=== PATIENT | male | born 1960 | race Caucasian/White ===

== ENCOUNTER 2017-06-02 13:14 | Inpatient (IN) ==
[2017-06-02] MEDS ORDERED: SODIUM CHLORIDE 0.9% 500 ML IV STA ×2 (14:05→15:45)
[2017-06-02] MEDS ORDERED: PANTOPRAZOLE 40 MG VIAL IV STA (14:05)
[2017-06-02] MEDS ORDERED: ONDANSETRON 4 MG/2 ML VIAL IV STA (14:05)
[2017-06-02 14:22] LABS: Basophils # 0.1 10*3/uL (0.0-0.2); Basophils % 1.4 % (0.0-0.8); Eosinophils # 0.6 10*3/uL (0.0-0.87); Eosinophils % 7.1 % (0.00-10.9); Hematocrit 46.2 VOL% (42.0-52.0); Hemoglobin 16.2 GM/DL (14.0-18.0); Immature Granulocytes % 0.8 %; Immature Granulocytes Absolute 0.07 #; Lymphocytes # 2.1 10*3/uL (1.4-4.0); Lymphocytes % 23.6 % (21.2-54.2); Mean Corpuscular HGB Conc 35.1 GM/DL (32-36); Mean Corpuscular Hemoglobin 30 PG (27-34); Mean Corpuscular Volume 86.2 FL (87-102); Mean Platelet Volume 12.9 FL (9.6-12.0); Monocytes # 0.7 10*3/uL (0.11-0.8); Monocytes % 7.8 % (1.7-12.7); Neutrophils # 5.3 10*3/uL (1.4-7.4); Neutrophils % 59.3 % (38.7-73.9); Platelet Count 190 T/CUMM (130-400); Red Blood Count 5.36 MC/CUMM (3.8-5.5); Red Cell Distribution Width 12.6 % (9.3-17.3)
[2017-06-02] MEDS ORDERED: ONDANSETRON 4 MG/2 ML VIAL ONE (14:28)
[2017-06-02] MEDS ORDERED: PANTOPRAZOLE 40 MG VIAL IV ONE (14:28)
[2017-06-02 14:34] LABS: INR 1.1; PT Patient Result 11.4 SECS
--- NOTE | 2017-06-02 14:48 | CT Report ---
CT of the abdomen and pelvis with intravenous contrast only. 100 cc Omni 350. Indication: Rectal bleeding. Generalized abdominal pain. 100 cc Omni 350. Axial images were obtained with sagittal and coronal reconstructions. Comparison: Previous noncontrasted study of July 04, 2010. The heart is normal in size. There is no pericardial effusion. The lung bases are essentially clear. There is mild fatty infiltration of the liver. No focal liver lesions are identified. There is no splenic enlargement. There is no adrenal enlargement. No pancreatic lesions are identified. There is a 4 mm calculus at the lower pole of the left kidney. No cystic or solid masses are seen within the kidneys. There are prominent extrarenal pelvi bilaterally, worse on the right. The urinary bladder is distended. The prostate gland is upper limits of normal in size. There is no inguinal or iliac chain lymphadenopathy. There is no retroperitoneal or mesenteric lymphadenopathy. Along the SMA, there is slight stranding in the fat, and small subcentimeter lymph nodes are present. A small hiatal hernia is suggested. The proximal and distal loops of small intestine are not dilated. Some of the middle loops of small intestine are mildly dilated, particularly in the left abdomen, with out fold thickening, or wall thickening, or surrounding inflammation. There is an umbilical hernia which contains only fat. The terminal ileum and appendix present a normal appearance. The colon is not dilated. There is no free air or free fluid seen within the peritoneal cavity. Degenerative changes are noted within the spinal column. Impression: 1. Fatty liver. 2. Nonspecific dilatation without wall thickening involving a few loops of small intestine in the left abdomen. 3. Small hiatal hernia. 4. Very slight fat stranding along the SMA root, with tiny subcentimeter lymph nodes. 5. Umbilical hernia containing fat. Hiatal hernia. 6. Bilateral extrarenal pelvi. Nonobstructing left renal calculus. The CT exam was performed using one or more of the following dose reduction techniques: Automated exposure control, adjustment of the mA and/or kV according to patient size, or use of iterative reconstruction technique. PROCEDURE INTERPRETED AT [facility] DEPARTMENT OF RADIOLOGY Final Report Signed by: Dr. Delma Ceballos
[2017-06-02 14:57] LABS: Albumin 4.3 G/DL (3.4-5.0); Calcium 9.3 MG/DL (8.5-10.1); Osmolality,Calculated 282.7 MOS/KG (273-304); Potassium 4.5 MMOL/L (3.5-5.1); Total Protein 7.6 G/DL (6.4-8.3)
--- NOTE | 2017-06-02 15:13 | XRay Report ---
Exam: XR chest 1V portable Date: 06/02/2017 2:05 PM Indication: Shortness of breath Comparison: None Technical: AP Findings: Mild cardiomegaly. External cardiac leads are present. Mediastinum is intact. No obvious effusions. The bony structures reveal lateral marginal osteophytes and arthritic change of the shoulders. No obvious consolidations or pneumothorax. Impression: 1. Cardiomegaly without decompensation 2. Degenerative spondylosis change thoracic spine. PROCEDURE INTERPRETED AT [facility] DEPARTMENT OF RADIOLOGY Final Report Signed by: Dr. John Loya
[2017-06-02] MEDS ORDERED: INSULIN REGULAR 100 UNIT/ML SUBCUT STA (15:33)
[2017-06-02] MEDS ORDERED: ACETAMINOPHEN 325 MG TABLET PO PRN (15:35)
[2017-06-02] MEDS ORDERED: ONDANSETRON 4 MG/2 ML VIAL IV PRN (15:35)
--- NOTE | 2017-06-02 15:41 | Emergency Department Note ---
Krystle Briones Rolonda, am scribing for, and in the presence of, Ashish Whitley MD 14:14. Angi Briones Phillip K, MD, personally performed the services described in this documentation, ascribed by Jaison Dalton in my presence, and it is both accurate and complete [id number] . Arrival - Arrival Chief Complaint: GI Bleed/Rectal Stated Complaint: GI bleed ED Nursing Triage Note: pt c/o "tomato paste" blood in stool onset yesterday Mode of Arrival: Ambulatory Limitations: No Limitations Source: Patient, Old Records Reviewed, RN Notes Reviewed Time Seen by Provider: 06/02/17 14:04 - History of Present Illness HPI Narrative: Pt is a 56 y/o male who ambulated to the ED wit complaint of lower abdominal pain with an onset of x1 day ago. Pt states that he noticed blood in his stool yesterday morning, blood in urine last night and this morning as well. Nurses' note states that pt stated he had "tomato paste" blood in his stool. He states that he is also currently on medication for constipation. Pt confirms nausea, light headedness, and lower abdomen pain but denies vomiting, fever and SHx of smoking and EtOh usage. Onset (ago): day(s) Consistency: constant Severity: moderate Severity scale (1-10): 4 Allergies/Adverse Reactions: Allergies Allergy/AdvReac Type Severity Reaction Status Date / Time No Known Allergies Allergy Verified 05/28/16 10:30 Home Medications: Home Medications Medication Instructions Recorded Confirmed Type Amlodipine Besylate/Benazepril 1 each PO DAILY 06/17/16 06/02/17 History [Amlodipine-Benazepril 5-20 mg] Aspirin/Caffeine [Bc Arthritis 1 each PO DAILY PRN 06/02/17 06/02/17 History Powder Packet] Sennosides [Natural Laxative] 8.6 mg PO DAILY PRN 06/02/17 06/02/17 History Tramadol HCl [Tramadol Tab] 50 mg PO Q8H PRN 06/02/17 06/02/17 History clonazePAM TAB [KlonoPIN] 0.5 mg PO TID 06/02/17 06/02/17 History Review of System - Review of System 12 point system: reviewed and no additional remarkable complaints except as stated - Review of System Constitutional: Absent: chills, diaphoresis, fever Eyes: Absent: pain Head/Ears/Nose/Throat: Absent: earache Respiratory: Absent: cough, respiratory distress, wheezing Cardiovascular: Absent: chest pain, palpitations, dyspnea on exertion Gastrointestinal: Present: abdominal pain, nausea, constipation. Absent: vomiting Musculoskeletal: Absent: arm pain, back pain, lower back pain, leg pain, neck pain Skin: Absent: rash Neurological: Present: vertigo. Absent: headache Psychiatric: Absent: anxiety Medical,Surgical,& Family Hx - Medical History Cardio: History of: Hypertension Respiratory: History of: Respiratory Problems (C-Pap) Musculoskeletal: History of: Back/Neck Problems (Back injury 05/23/16) - Social History Smoking Status: Never smoker Frequency of Alcohol Use: None Type of Drug Use: None Exam Vital Signs: Vital Signs Temperature 98.2 F 06/02/17 13:23 Pulse Rate 75 06/02/17 13:23 Respiratory Rate 18 06/02/17 13:23 Blood Pressure 118/78 06/02/17 13:23 O2 Sat by Pulse Oximetry 98 06/02/17 14:24 - General General appearance: alert, in no apparent distress - Head Head exam: Present: atraumatic, normocephalic - Eye Eye exam: Present: PERRL, EOMI - ENT ENT exam: Present: mucous membranes moist. Absent: mucous membranes dry - Neck Neck exam: Present: full ROM. Absent: tenderness - Chest Chest inspection: Present: symmetric chest wall rise. Absent: tenderness - Respiratory Respiratory exam: Present: normal lung sounds bilaterally. Absent: wheezes - Cardiovascular Cardiovascular exam: Present: regular rate, normal rhythm, normal heart sounds. Absent: bradycardia - Abdominal Exam Abdominal exam: Present: soft, tenderness (suprapubic) - Rectal Exam Rectal exam: Present: bloody stool (gross blood and mucous). Absent: normal inspection - Extremities Exam Extremities exam: Present: full ROM. Absent: tenderness - Back Exam Back exam: Present: full ROM. Absent: tenderness - Neurological Exam Neurological exam: Present: alert, oriented X3, CN II-XII intact - Psychiatric Psychiatric exam: Present: normal affect, normal mood - Skin Skin exam: Present: warm, dry, intact, normal color. Absent: rash Course Course Narrative: Patient discussed with Dr. Herbert. Results - Labs CBC & BMP: 06/02/17 14:12 06/02/17 14:12 Lab Results: I have reviewed the patients labs Labs: Laboratory Tests 06/02/17 14:18 POC Creatinine 0.94 POC Estimated GFR (eGFR) > 60 Laboratory Tests 06/02/17 06/02/17 14:12 14:12 WBC 9.0 RBC 5.36 Hgb 16.2 Hct 46.2 MCV 86.2 L Plt Count 190 MPV 12.9 H Baso % (Auto) 1.4 H INR 1.1 PT Patient/Control Mix 11.4 Laboratory Tests 06/02/17 14:12 Sodium 131 L Potassium 4.5 Chloride 97 L Carbon Dioxide 21 Anion Gap 17.5 H BUN 13 GFR Calculation 111 Glucose 484 H AST 85 H ALT 129 H - Diagnostic Findings Procedure: CT Abdomen and Pelvis: report reviewed by me (1. Fatty liver. 2. Nonspecific dilatation without wall thickening involving a few loops of small intestine in the left abdomen. 3. Small hiatal hernia.) Disposition Clinical Impression: Lower gastrointestinal hemorrhage, Poorly controlled diabetes mellitus Case discussed with: patient, patient's family Disposition: Still a Patient Condition: Guarded Additional Instructions: Admit to Dr. Herbert
[2017-06-02] MEDS ORDERED: SODIUM CHLORIDE 0.9% 1,000 ML IV STA (15:43)
[2017-06-02] MEDS ORDERED: GLUCAGON 1 MG VIAL IM PRN (16:52)
[2017-06-02] MEDS ORDERED: DEXTROSE 50% 25 GM/50 ML VIAL IV PRN (16:52)
[2017-06-02] MEDS: SODIUM CHLORIDE 0.9% 1,000 ML IV SCH (17:00)
--- NOTE | 2017-06-02 18:38 | Family Practice History&Phys ---
Assessment and Plan (1) Lower gastrointestinal hemorrhage Status: Acute Assessment and plan: Lower abdominal bleeding unknown etiology. Has some wall thickening small bowel on abdominal CT. Symptoms began after taking cathartics. No previous history of GI bleeding Current Visit: Yes (2) new-onset type 2 diabetes Status: Acute Current Visit: Yes (3) Weight loss and weakness Status: Acute Assessment and plan: Probably secondary to new onset type 2 diabetes mellitus Current Visit: Yes (4) history of renal calculi Status: Chronic Assessment and plan: Previous history of renal calculi. Has a stone in the left renal pelvis Current Visit: Yes (5) fatty liver disease Status: Acute Assessment and plan: Fatty infiltration of the liver on the abdominal CT. Has slight elevation of liver enzymes Current Visit: Yes (6) hypertension Status: Chronic Assessment and plan: Stable on present medication Current Visit: Yes (7) obstructive sleep apnea Status: Chronic Assessment and plan: Stable at present Current Visit: Yes History of Present Illness Chief complaint: Rectal bleeding and weight loss History of present illness: Mr. Allen is a 56 year old male Pt is a 56 y/o male who was admitted through the emergency room with complaint of lower abdominal pain with an onset of x1 day. Pt states that he noticed blood in his stool yesterday morning. The blood develop after taking multiple laxatives for constipation. He denies previous similar history. Nurses' states that pt stated he had "tomato paste" blood in his stool. He states that he is currently on medication for constipation. Pt confirms nausea, light headedness, and lower abdomen pain but denies vomiting,or fever. Patient is presently being treated at pain clinic for low back pain. He is presently receiving Ultram but no other form of narcotics. patient's lab studies in the emergency room revealed no signs of anemia. He was noted to have a elevated blood sugar at 484. No previous history of diabetes. He has had over 20 pound weight loss in the last 4-6 weeks. He is also had nocturia getting up 3-4 times a night. He is further had severe weakness over the last 4-6 weeks with significant visual changes. All the symptoms are compatible with diabetes. No recent steroid injections. He has not had any lab done in several years. I have primarily seen him in relation to his his back injury. Was also noted to have a slight elevation of liver enzymes. Abdominal CT revealed fatty liver disease with some wall thickening of the small bowel in the left lower abdomen. No history of alcohol usage. he was also noted to have a left renal calculi nonobstructing. The Stone is in the renal pelvis. Has history of previous renal calculi. Last colonoscope done 15-20 years ago. in view of overall history is being admitted further evaluation and therapy. Home Medications Medication Instructions Recorded Confirmed Type Amlodipine Besylate/Benazepril 1 each PO DAILY 06/17/16 06/02/17 History [Amlodipine-Benazepril 5-20 mg] Aspirin/Caffeine [Bc Arthritis 1 each PO DAILY PRN 06/02/17 06/02/17 History Powder Packet] Sennosides [Natural Laxative] 8.6 mg PO DAILY PRN 06/02/17 06/02/17 History Tramadol HCl [Tramadol Tab] 50 mg PO Q8H PRN 06/02/17 06/02/17 History clonazePAM TAB [KlonoPIN] 0.5 mg PO TID 06/02/17 06/02/17 History Allergies Allergy/AdvReac Type Severity Reaction Status Date / Time No Known Allergies Allergy Verified 05/28/16 10:30 Medical,Surgical,& Family Hx - Medical History Cardio: History of: Hypertension Respiratory: History of: Respiratory Problems (C-Pap for obstructive sleep apnea ) Genitourinary: History of: Kidney Stones Gastrointestinal: History of: GERD Musculoskeletal: History of: Back/Neck Problems (Back injury 05/23/16), Degenerative Disk Disease, Herniated Disk - Surgical History Orthopedic Surgeries: Surgical HX of;: Spinal Surgery (history of lumbar disc surgery) - Family History Family History: Reports;: Family Hypertension - Social History Smoking Status: Never smoker Frequency of Alcohol Use: None Type of Drug Use: None Marital Status: Lives With:: Spouse Functional capacity: independent ambulation Exam - Constitutional Vitals: Period Temp Pulse Resp BP Sys/June Pulse Ox Last 24 Hr 97.4 F-98.2 F 56-77 18-20 111-124/60-86 96-98 General appearance: mild distress - Head Head exam: Present: normal inspection - Eye Pupils: Present: GLORY - ENT ENT exam: Present: normal exam - Neck Neck exam: Present: normal inspection - Respiratory Respiratory exam: Present: clear to auscultation bilaterally - Cardiovascular Cardiovascular exam: Present: regular rate and rhythm - GI/Abdominal GI/Abdominal exam: Present: normal bowel sounds, tenderness, soft - Extremities Exam Extremities exam: Present: full ROM - Back Exam Back exam: Present: other (diffuse tenderness over the lower lumbar region spine ) - Neurological Exam Neurological exam: Present: alert, oriented X3 - Psychiatric Psychiatric exam: Present: normal affect - Skin Skin exam: Present: normal color Results - Labs CBC & BMP: 06/03/17 06:01 06/03/17 06:01 Quality Measures - Stroke Symptom Onset Unknown: No
[2017-06-02] MEDS ORDERED: SENNA 8.6 MG TABLET PO PRN (19:19)
[2017-06-02] MEDS ORDERED: traMADol 50 MG TABLET PO PRN (19:19)
[2017-06-02] MEDS: DOCUSATE SODIUM 100 MG CAPSULE PO SCH (21:03)
[2017-06-02] MEDS: INSULIN LISPRO 100 UNIT/ML SUBCUT SCH (21:03)
[2017-06-02] MEDS: clonazePAM 0.5 MG TABLET PO SCH (21:03)
[2017-06-02 22:49] LABS: Hematocrit 40.4 VOL% (42.0-52.0); Hemoglobin 14.2 GM/DL (14.0-18.0)
[2017-06-03] MEDS: SODIUM CHLORIDE 0.9% 1,000 ML IV SCH ×3 (00:57→19:00)
--- NOTE | 2017-06-03 06:01 | EKG Report ---
Stationary ECG Study [facility] ER Test Date: 06/02/2017 3:19:23 PM Pat Name: HOLLY NAVARRO Department: Room: 237 Gender: M Director Risk: : 1960 Requested by: Ashish Tompkins Order Number: [id number] Reading MD: UCHE MCCULLOUGH Intervals [place] Rate: 54 P: 999 NH: 0 QRS: 19 QRSD: 113 T: 54 QT: 438 QTc: 424 Interpretive Statements ATRIAL FIBRILLATION WITH SLOW VENTRICULAR RESPONSE MODERATE INTRAVENTRICULAR CONDUCTION DELAY NONSPECIFIC T-WAVE ABNORMALITY ABNORMAL RHYTHM ECG Electronically Signed On 06-03-17 09:26:50 CDT by UCHE MCCULLOUGH [email or web address]
[2017-06-03 06:34] LABS: Basophils # 0.1 10*3/uL (0.0-0.2); Basophils % 1.4 % (0.0-0.8); Eosinophils # 0.8 10*3/uL (0.0-0.87); Eosinophils % 11.3 % (0.00-10.9); Hematocrit 40.2 VOL% (42.0-52.0); Hemoglobin 13.8 GM/DL (14.0-18.0); Immature Granulocytes % 0.9 %; Immature Granulocytes Absolute 0.06 #; Lymphocytes % 30.5 % (21.2-54.2); Mean Corpuscular HGB Conc 34.3 GM/DL (32-36); Mean Corpuscular Hemoglobin 30 PG (27-34); Mean Platelet Volume 13.1 FL (9.6-12.0); Monocytes # 0.7 10*3/uL (0.11-0.8); Monocytes % 10.3 % (1.7-12.7); Neutrophils % 45.6 % (38.7-73.9); Platelet Count 143 T/CUMM (130-400); Red Blood Count 4.62 MC/CUMM (3.8-5.5); Red Cell Distribution Width 12.7 % (9.3-17.3); White Blood Count 6.6 T/CUMM (4-12)
[2017-06-03 07:16] LABS: Eosinophils 11 % (0-10); Hypochromasia 1+; Lymphocytes 33 % (20-55); Segmented Neutrophils 45 % (50-85); Total Cells Counted 100
[2017-06-03 07:17] LABS: Platelet Estimate Adequate
[2017-06-03 07:21] LABS: Albumin 3.3 G/DL (3.4-5.0); Bilirubin,Total 1.2 MG/DL (0.2-1.0); Calcium 8.3 MG/DL (8.5-10.1); Magnesium 1.9 MG/DL (1.8-2.4); Osmolality,Calculated 284.5 MOS/KG (273-304); Potassium 3.7 MMOL/L (3.5-5.1); Risk Ratio 7.78; Total Protein 5.9 G/DL (6.4-8.3); VLDL CHOLESTEROL 48.6 MG/DL
[2017-06-03 07:42] LABS: Apearance,Urine CLEAR (Clear); Bilirubin,Urine Negative (Negative); Blood, Urine Negative (Negative); Glucose,Urine (UA) >=500 mg/dL (Negative); Ketones,Urine 20 mg/dL (Negative); Mucus,Urine Occasional /LPF (Occasional); Nitrite,Urine Negative (Negative); Protein,Urine Negative; RBC,Urine <1 /HPF (0-4); Urine Color Yellow (Yellow); Urine Specific Gravity 1.026 (1.001-1.035); Urine Urobilinogen < 2.0 EU/DL (0.2-1.0); WBC,Urine 2 /HPF (0-6)
[2017-06-03 07:53] LABS: Hepatitis A Ab IgM Quant 0.06 Index; Hepatitis A Ab IgM Result Negative (Negative); Hepatitis B Core IgM Quant 0.14 Index; Hepatitis B Core IgM Result Negative (Negative); Hepatitis B Surface Ag Quant < 0.10 Index; Hepatitis B Surface Ag Result Negative (Negative); Hepatitis C Virus Ab Result Negative (Negative)
--- NOTE | 2017-06-03 08:30 | Family Practice Progress Note ---
Family Practice - PN: Subj Interval history: Patient states she feels some better. He has had no further rectal bleeding that is being is only occurred with bowel movements. His blood sugars have improved but are still elevated. Hemoglobin A1c is 11.7. Patient does not want to take insulin so we will trial an oral meds but likely will have to go to insulin therapy. Also has fatty liver disease with elevated lipids and liver enzymes. I started patient on Lipitor this a.m.. Have consulted GI and will have staff hold him n.p.o. until seen by GI this a.m. I will suspect the bleeding is probably from a tear or polyp since it only occurs with bowel movements. He has not had a colonoscope in over 15 years. Will also consult diabetic education since patient has a new diabetic. Spent significant time with patient and and they have an understanding of multiple issues. Exam (Progress Note) - Constitutional Vitals: Period Temp Pulse Resp BP Sys/June Pulse Ox Last 24 Hr 97.3 F-98.2 F 51-77 18-20 110-133/60-86 96-98 Results - Labs CBC & BMP: 06/03/17 06:01 06/03/17 06:01 Assessment and Plan (1) Lower gastrointestinal hemorrhage Status: Acute Assessment and plan: Lower abdominal bleeding unknown etiology. Has some wall thickening small bowel on abdominal CT. Symptoms began after taking cathartics. No previous history of GI bleeding Current Visit: Yes (2) new-onset type 2 diabetes Status: Acute Current Visit: Yes (3) Weight loss and weakness Status: Acute Assessment and plan: Probably secondary to new onset type 2 diabetes mellitus Current Visit: Yes (4) history of renal calculi Status: Chronic Assessment and plan: Previous history of renal calculi. Has a stone in the left renal pelvis Current Visit: Yes (5) fatty liver disease Status: Acute Assessment and plan: Fatty infiltration of the liver on the abdominal CT. Has slight elevation of liver enzymes Current Visit: Yes (6) hypertension Status: Chronic Assessment and plan: Stable on present medication Current Visit: Yes (7) obstructive sleep apnea Status: Chronic Assessment and plan: Stable at present Current Visit: Yes Quality Measures - Stroke Symptom Onset Unknown: No
[2017-06-03] MEDS: INSULIN LISPRO 100 UNIT/ML SUBCUT SCH ×3 (08:38→16:31)
[2017-06-03] MEDS: PANTOPRAZOLE 40 MG TABLET PO SCH (08:41)
[2017-06-03] MEDS: clonazePAM 0.5 MG TABLET PO SCH ×3 (08:41→22:17)
--- NOTE | 2017-06-03 11:28 | Gastrointestinal Consult Note ---
Assessment and Plan (1) Rectal bleed Status: Acute Assessment and plan: 06/03-sudden onset bright red rectal bleeding with bowel movement 2 days with lower abdominal pain/cramping. Last C scope 15-20 years ago at [facility]. Slight drop in H&H since admission. CT of abdomen results noted as below. Continue clear liquid diet. Obtain records from [facility] from prior endoscopy. Continue to monitor H&H. Plan an addendum to followed by Dr. Alexis. Current Visit: Yes (2) Elevated LFTs Status: Acute Assessment and plan: 06/03-findings of mildly elevated LFTs on admission with findings of fatty liver on CT scan, elevated triglycerides and cholesterol. Negative hepatitis panel. Negative history of alcohol use. Continue to monitor at this time. Plan an addendum to follow Dr. Alexis. Current Visit: Yes History of Present Illness Chief complaint: Rectal bleeding History of present illness: Mr. Allen is a 56 year old male who was admitted to the hospital with onset of rectal bleeding. Patient states that he was in his usual state of health until Thursday. He states that he has had problems with constipation over the last year since having a back injury requiring back surgery and daily use of narcotic pain medicine. He had been constipated off and on for several days last week and states that he took several laxatives. Thursday morning he had the urge to have a bowel movement and at that time he states he had a very large stool that was also followed by a large amount of bright red blood. He does recall having some lower abdominal pain that he feels was not just the urge to defecate. However the pain was resolved with the bowel movement. Later that day he had another large bowel movement which was also followed by large amount of bright red blood. He denies any clots noted with this. He also had the same lower abdominal pain. He then woke up Thursday morning and had a repeat episode of bleeding. At that time he felt he needed to come to the emergency room for further evaluation. Patient states that he has lost 20 pounds over the last 6 weeks along with this he is also noted an increase in his water intake as well as his urination. He is also reported some weakness and some visual changes. He has no prior history of diabetes however on admission was found to have an elevated blood sugar 484. He states that he has had GI bleeding in the past approximately 15-20 years ago and underwent a colonoscopy by Dr. Moncada at [facility]. He cannot recall the findings at that time but was told to return in 10 years. He has no family history of colon cancer. He denies any upper GI symptoms including dysphagia, GERD, dyspepsia or epigastric pain. He does take an occasional BC powder every 2-3 weeks for arthritis pain. He does not smoke and has no prior history of alcohol use. On admission he was found to have elevated LFTs with bilirubin 1.2, AST 62, ALT 101 and a normal alkaline phosphatase. He has an elevation in his triglycerides at 243 and cholesterol at 210. Negative hepatitis panel noted. On admission H&H was 16/ 46 and is trended downward to 13/40. He has no prior history of blood transfusions or chronic disease and states he has not been hospitalized or had routine medical care over the last [address] of abdomen with contrast shows fatty liver, nonspecific dilation without wall thickening of a few loops of the small intestines in the left abdomen, hiatal hernia, fat stranding of SMA root with subcentimeter lymph nodes, and umbilical hernia containing fat. Home Medications Medication Instructions Recorded Confirmed Type Amlodipine Besylate/Benazepril 1 each PO DAILY 06/17/16 06/02/17 History [Amlodipine-Benazepril 5-20 mg] Aspirin/Caffeine [Bc Arthritis 1 each PO DAILY PRN 06/02/17 06/02/17 History Powder Packet] Sennosides [Natural Laxative] 8.6 mg PO DAILY PRN 06/02/17 06/02/17 History Tramadol HCl [Tramadol Tab] 50 mg PO Q8H PRN 06/02/17 06/02/17 History clonazePAM TAB [KlonoPIN] 0.5 mg PO TID 06/02/17 06/02/17 History Allergies Allergy/AdvReac Type Severity Reaction Status Date / Time No Known Allergies Allergy Verified 05/28/16 10:30 Medical,Surgical,& Family Hx - Medical History Cardio: History of: Hypertension Respiratory: History of: Respiratory Problems (C-Pap for obstructive sleep apnea ) Genitourinary: History of: Kidney Stones Gastrointestinal: History of: GERD Musculoskeletal: History of: Back/Neck Problems (Back injury 05/23/16), Degenerative Disk Disease, Herniated Disk - Surgical History Orthopedic Surgeries: Surgical HX of;: Spinal Surgery (history of lumbar disc surgery) - Family History Family History: Reports;: Family Hypertension - Social History Smoking Status: Never smoker Frequency of Alcohol Use: None Type of Drug Use: None 12 point system: reviewed and no additional remarkable complaints except as stated - Constitutional Constitutional: Present: as per HPI, fatigue, weakness, weight loss (20 pounds 6 weeks) - EENT Eyes: Present: as per HPI Ears: Present: as per HPI Nose, mouth and throat: Present: as per HPI - Cardiovascular Cardiovascular: Present: as per HPI - Respiratory Respiratory: Present: as per HPI - Gastrointestinal Gastrointestinal: Present: as per HPI, abdominal pain (Lower quadrant), hematochezia - Genitourinary Genitourinary: Present: as per HPI, urinary frequency - Musculoskeletal Musculoskeletal: Present: as per HPI - Neurological Neurological: Present: as per HPI - Psychiatric Psychiatric: Present: as per HPI - Endocrine Endocrine: Present: as per HPI, polydipsia, polyuria - Hematologic/Lymphatic Hematologic/Lymphatic: Present: as per HPI Exam - Constitutional Vitals: Period Temp Pulse Resp BP Sys/June Pulse Ox Last 24 Hr 97.3 F-98.2 F 51-77 18-20 110-133/60-86 96-98 General appearance: normal weight, no acute distress - Head Head exam: Present: normal inspection, normocephalic - Eye Eye exam: Present: other (Lids and conjunctive are unremarkable). Absent: scleral icterus - ENT ENT exam: Present: normal exam, normal oropharynx - Neck Neck exam: Present: normal inspection - Respiratory Respiratory exam: Present: clear to auscultation bilaterally. Absent: rales, rhonchi, wheezes - Cardiovascular Cardiovascular exam: Present: regular rate and rhythm. Absent: diastolic murmur , JVD, systolic murmur - GI/Abdominal GI/Abdominal exam: Present: normal bowel sounds, soft. Absent: ascites, distended, mass, organomegaly, tenderness - Extremities Exam Extremities exam: Present: normal inspection, full ROM - Back Exam Back exam: Present: normal inspection - Neurological Exam Neurological exam: Present: alert, oriented X3 - Psychiatric Psychiatric exam: Present: normal affect, normal mood - Skin Skin exam: Present: normal color, warm, dry Results - Labs CBC & BMP: 06/03/17 06:06/03/17 06:01 Lab Results: I have reviewed the past 24 hour labs Quality Measures - Stroke Symptom Onset Unknown: No
[2017-06-03] MEDS ORDERED: BISACODYL 5 MG TABLET PO ONE (12:00)
[2017-06-03] MEDS: ATORVASTATIN 20 MG TABLET PO SCH (12:55)
[2017-06-03] MEDS: DOCUSATE SODIUM 100 MG CAPSULE PO SCH ×2 (12:56→22:17)
[2017-06-03] MEDS ORDERED: POLYETHYLENE GLYCOL 3350/ELECTROLYTES 4,000 ML BOTTLE PO ONE (13:00)
[2017-06-03] MEDS: metFORMIN 500 MG TABLET PO SCH (16:40)
[2017-06-03] MEDS: glyBURIDE 5 MG TABLET PO SCH (16:42)
[2017-06-03 21:19] LABS: % Iron Saturation 37.2 % (18-50); Ferritin 343.2 ng/ml (26-388)
[2017-06-04] MEDS: INSULIN LISPRO 100 UNIT/ML SUBCUT SCH ×5 (01:31→21:26)
[2017-06-04] MEDS ORDERED: MAGNESIUM CITRATE 300 ML BOTTLE PO ONE (06:00)
[2017-06-04 07:06] LABS: Basophils # 0.1 10*3/uL (0.0-0.2); Basophils % 1.4 % (0.0-0.8); Eosinophils # 0.6 10*3/uL (0.0-0.87); Eosinophils % 8.9 % (0.00-10.9); Hematocrit 43.8 VOL% (42.0-52.0); Hemoglobin 14.8 GM/DL (14.0-18.0); Immature Granulocytes % 0.9 %; Immature Granulocytes Absolute 0.06 #; Mean Corpuscular HGB Conc 33.8 GM/DL (32-36); Mean Corpuscular Hemoglobin 30 PG (27-34); Mean Corpuscular Volume 88.7 FL (87-102); Mean Platelet Volume 12.7 FL (9.6-12.0); Monocytes # 0.7 10*3/uL (0.11-0.8); Monocytes % 9.5 % (1.7-12.7); Neutrophils # 3.5 10*3/uL (1.4-7.4); Neutrophils % 50.3 % (38.7-73.9); Platelet Count 158 T/CUMM (130-400); Red Blood Count 4.94 MC/CUMM (3.8-5.5); Red Cell Distribution Width 12.9 % (9.3-17.3)
[2017-06-04 07:37] LABS: Calcium 8.3 MG/DL (8.5-10.1); Osmolality,Calculated 280.5 MOS/KG (273-304); Potassium 3.5 MMOL/L (3.5-5.1)
--- NOTE | 2017-06-04 08:00 | Family Practice Progress Note ---
Family Practice - PN: Subj Interval history: Patient states that he continues to slowly improve. He has had no further hematochezia or melena. His hemoglobin and hematocrits remained stable. Patient is scheduled to have a colonoscope this a.m. Blood sugars are slowly improving. Reviewed all studies in detail. Will review colonoscope today. Will have patient increase activity and begin discharge planning Exam (Progress Note) - Constitutional Vitals: Period Temp Pulse Resp BP Sys/June Pulse Ox Last 24 Hr 96.9 F-98.4 F 51-69 18-20 105-135/61-78 96-99 Results - Labs CBC & BMP: 06/04/17 06:10 06/04/17 06:10 Assessment and Plan (1) Lower gastrointestinal hemorrhage Status: Acute Assessment and plan: Lower abdominal bleeding unknown etiology. Has some wall thickening small bowel on abdominal CT. Symptoms began after taking cathartics. No previous history of GI bleeding Current Visit: Yes (2) new-onset type 2 diabetes Status: Acute Current Visit: Yes (3) Weight loss and weakness Status: Acute Assessment and plan: Probably secondary to new onset type 2 diabetes mellitus Current Visit: Yes (4) history of renal calculi Status: Chronic Assessment and plan: Previous history of renal calculi. Has a stone in the left renal pelvis Current Visit: Yes (5) fatty liver disease Status: Acute Assessment and plan: Fatty infiltration of the liver on the abdominal CT. Has slight elevation of liver enzymes Current Visit: Yes (6) hypertension Status: Chronic Assessment and plan: Stable on present medication Current Visit: Yes (7) obstructive sleep apnea Status: Chronic Assessment and plan: Stable at present Current Visit: Yes Quality Measures - Stroke Symptom Onset Unknown: No
[2017-06-04] MEDS: glyBURIDE 5 MG TABLET PO SCH ×2 (08:43→16:58)
[2017-06-04] MEDS: metFORMIN 500 MG TABLET PO SCH ×2 (08:43→16:57)
[2017-06-04] MEDS: PANTOPRAZOLE 40 MG TABLET PO SCH (10:37)
[2017-06-04] MEDS: clonazePAM 0.5 MG TABLET PO SCH ×3 (10:37→21:13)
[2017-06-04] MEDS: ATORVASTATIN 20 MG TABLET PO SCH (10:37)
[2017-06-04] MEDS: DOCUSATE SODIUM 100 MG CAPSULE PO SCH ×2 (10:37→21:13)
[2017-06-04] MEDS ORDERED: PROPOFOL 200 MG/20 ML VIAL IV ONE (12:21)
[2017-06-04] MEDS ORDERED: LIDOCAINE 1% 5 ML VIAL ONE (12:21)
--- NOTE | 2017-06-04 12:27 | History and Physical Update ---
History and Physical Update - History and Physical H&P was reviewed, the patient examined and there: are no changes in the patients condition since last H&P was completed. - Physical Exam Mental Status: alert and oriented Heart: regular rate and rhythm Lung: clear to auscultation Abdomen: within normal limits Vitals: within normal limits
--- NOTE | 2017-06-04 12:50 | Operative Note ---
Date of procedure: 06/04/17 Pre-op diagnosis: Lower GI bleeding Procedure: Procedure note: Colonoscopy Physician: Dr. Slava Alexis Brief clinical abstract: 56-year-old male is admitted after onset of painless bright red hematochezia. He had 2 large episodes of bright red bleeding per rectum prior to presentation. Hemoglobin has been stable with him not requiring transfusion. Hemodynamics have been normal. His last colonoscopy was over 10 years ago. Endoscopic findings: After informed consent was obtained, the patient was placed in the left lateral decubitus position. Digital rectal exam was performed with no palpable abnormalities felt. No external lesions were seen. Pediatric videocolonoscope was inserted into the rectum and advanced to the cecum without difficulty. Retroflex view within the cecum was performed back to the level of the hepatic flexure. The endoscope was advanced back to the cecum and on withdrawal colonic mucosa was carefully examined. Bowel prep was of good quality. Vascular pattern throughout the colon appeared normal. On withdrawal, no polyps were seen. No diverticuli were noted. The endoscope was withdrawn in the rectum with retroflex view showing 3 large somewhat friable appearing internal hemorrhoids. The endoscope was removed and patient appeared to tolerate the procedure well. Impression: #1 large internal hemorrhoids-appears to be source of bleeding #2 otherwise normal colonoscopy Plan: Advance diet and could discharge today. Fiber supplementation. Discussed with patient about possible referral to Dr. Saavedra for hemorrhoidal banding. Anesthesia: MAC Surgeon / Physician: John Alexis Estimated blood loss: none Specimens: none sent Condition: stable Disposition: post procedure unit Results - Labs CBC & BMP: 06/04/17 06:10 06/04/17 06:10 Discharge Plan - Discharge Medications No Action Amlodipine Besylate/Benazepril [Amlodipine-Benazepril 5-20 mg] 1 each PO DAILY Sennosides [Natural Laxative] 8.6 mg PO DAILY PRN PRN Reason: Constipation Tramadol HCl [Tramadol Tab] 50 mg PO Q8H PRN PRN Reason: Pain clonazePAM TAB [KlonoPIN] 0.5 mg PO TID Aspirin/Caffeine [Bc Arthritis Powder Packet] 1 each PO DAILY PRN PRN Reason: Pain - Follow Up or Referral - Forms/Instructions
--- NOTE | 2017-06-04 12:53 | Anesthesia Post-Op ---
Anesthesia Post OP - Post Ansesthetic Evaluation Patient seen in post op: Yes Resp: within normal limits CV: within normal limits Mental: within normal limits Temp: within normal limits Awdq-Aa-Praxzeipl: within normal limits Nausea and Vomiting: within normal limits Pain: within normal limits
[2017-06-04] MEDS ORDERED: SIMETHICONE CHEW 125 MG TABLET PO PRN (14:58)
[2017-06-04] MEDS: SODIUM CHLORIDE 0.9% 1,000 ML IV SCH ×3 (15:04→17:16)
[2017-06-04] MEDS: POLYETHYLENE GLYCOL POWDER 17 GM PACK PO SCH (16:17)
[2017-06-05] MEDS: SODIUM CHLORIDE 0.9% 1,000 ML IV SCH ×2 (01:41→09:46)
[2017-06-05 05:09] LABS: Basophils # 0.1 10*3/uL (0.0-0.2); Eosinophils # 0.5 10*3/uL (0.0-0.87); Eosinophils % 7.5 % (0.00-10.9); Hematocrit 39.1 VOL% (42.0-52.0); Hemoglobin 13.4 GM/DL (14.0-18.0); Immature Granulocytes % 0.7 %; Immature Granulocytes Absolute 0.05 #; Lymphocytes # 2.3 10*3/uL (1.4-4.0); Lymphocytes % 31.7 % (21.2-54.2); Mean Corpuscular HGB Conc 34.3 GM/DL (32-36); Mean Corpuscular Hemoglobin 30 PG (27-34); Mean Corpuscular Volume 88.7 FL (87-102); Mean Platelet Volume 12.8 FL (9.6-12.0); Monocytes # 0.6 10*3/uL (0.11-0.8); Monocytes % 8.9 % (1.7-12.7); Neutrophils # 3.6 10*3/uL (1.4-7.4); Neutrophils % 50.2 % (38.7-73.9); Platelet Count 143 T/CUMM (130-400); Red Blood Count 4.41 MC/CUMM (3.8-5.5); Red Cell Distribution Width 12.9 % (9.3-17.3); White Blood Count 7.2 T/CUMM (4-12)
[2017-06-05 06:15] LABS: Albumin 3.3 G/DL (3.4-5.0); Bilirubin,Total 0.6 MG/DL (0.2-1.0); Calcium 8.1 MG/DL (8.5-10.1); Osmolality,Calculated 283.1 MOS/KG (273-304); Potassium 3.7 MMOL/L (3.5-5.1); Total Protein 5.5 G/DL (6.4-8.3)
[2017-06-05] MEDS: PANTOPRAZOLE 40 MG TABLET PO SCH (09:31)
[2017-06-05] MEDS: POLYETHYLENE GLYCOL POWDER 17 GM PACK PO SCH (09:31)
[2017-06-05] MEDS: glyBURIDE 5 MG TABLET PO SCH (09:32)
[2017-06-05] MEDS: metFORMIN 500 MG TABLET PO SCH ×2 (09:32→17:11)
[2017-06-05] MEDS: ATORVASTATIN 20 MG TABLET PO SCH (09:33)
[2017-06-05] MEDS: DOCUSATE SODIUM 100 MG CAPSULE PO SCH (09:33)
[2017-06-05] MEDS: clonazePAM 0.5 MG TABLET PO SCH ×2 (09:33→15:49)
[2017-06-05] MEDS: INSULIN LISPRO 100 UNIT/ML SUBCUT SCH ×3 (09:44→17:10)
--- NOTE | 2017-06-05 15:48 | Discharge Summary ---
Hospital Course - Hospital Course Hospital Course: Chief complaint: Rectal bleeding and weight loss History of present illness: Mr. Allen is a 56 year old male Pt is a 56 y/o male who was admitted through the emergency room with complaint of lower abdominal pain with an onset of x1 day. Pt states that he noticed blood in his stool yesterday morning. The blood develop after taking multiple laxatives for constipation. He denies previous similar history. Nurses' states that pt stated he had "tomato paste" blood in his stool. He states that he is currently on medication for constipation. Pt confirms nausea, light headedness, and lower abdomen pain but denies vomiting,or fever. Patient is presently being treated at pain clinic for low back pain. He is presently receiving Ultram but no other form of narcotics. patient's lab studies in the emergency room revealed no signs of anemia. He was noted to have a elevated blood sugar at 484. No previous history of diabetes. He has had over 20 pound weight loss in the last 4-6 weeks. He is also had nocturia getting up 3-4 times a night. He is further had severe weakness over the last 4-6 weeks with significant visual changes. All the symptoms are compatible with diabetes. No recent steroid injections. He has not had any lab done in several years. I have primarily seen him in relation to his his back injury. Was also noted to have a slight elevation of liver enzymes. Abdominal CT revealed fatty liver disease with some wall thickening of the small bowel in the left lower abdomen. No history of alcohol usage. he was also noted to have a left renal calculi nonobstructing. The Stone is in the renal pelvis. Has history of previous renal calculi. Last colonoscope done 15-20 years ago. in view of overall history is being admitted further evaluation and therapy DISCHARGE SUMMARY-patient was admitted hospital lab and x- ray studies obtained. Serial hemoglobin and hematocrits were obtained and remained stable. Patient was seen in consultation by Dr. Alexis. Patient's blood sugars were significantly elevated which is a new onset diabetes.. Seen in consultation by diabetic education. Patient was started on oral medications and sliding scale. His diabetes is improved but is still not adequately controlled. Patient does not want to go on insulin therapy at present so we will try to maximize diet exercise and medications. Colonoscope was performed which revealed a large internal hemorrhoid. This was felt to be the etiology of his bleed. Hemorrhoid was not bleeding at the time of the examination. discussed this in detail with patient and . Stated that if further bleeding occurred would need a banding procedure. Patient is stable at time of discharge and I have discussed findings in detail. Has a good understanding of his diabetes and other problems. Stressed the need for diet exercise weight control. We will continue present medications and plan follow-up in the office in 10 days or sooner as needed. Will have patient call in weekly blood sugar readings and titrate medications. Call or come to the ER if condition worsens or new problems develop Diagnosis - Discharge Diagnosis (1) Lower gastrointestinal hemorrhage Status: Acute (2) new-onset type 2 diabetes Status: Acute (3) Weight loss and weakness Status: Acute (4) history of renal calculi Status: Chronic (5) fatty liver disease Status: Acute (6) hypertension Status: Chronic (7) obstructive sleep apnea Status: Chronic Specialty Discharge - Follow Up or Referrals Follow up with: John Alexis MD [Physician] - 07/07/17 2:30 pm Discharge Plan - Discharge Data Condition at Discharge: Stable Discharge Diet: advance to your usual diet, diabetic diet Activity: resume usual activities as tolerated Hygiene: no restrictions Weight Bearing at Discharge: full weight bearing Driving: no restrictions Contact your physician if you experience:: fever over 101, Nausea/Vomiting, Shortness of breath - Discharge Medications New glyBURIDE [Diabeta] 10 mg PO BID W/MEALS #60 tablet metFORMIN [Glucophage] 1,000 mg PO BID W/MEALS #60 tablet Atorvastatin [Lipitor] 20 mg PO DAILY #30 tablet Pravastatin [Pravachol] 40 mg PO DAILY #30 tablet Continue Amlodipine Besylate/Benazepril [Amlodipine-Benazepril 5-20 mg] 1 each PO DAILY Sennosides [Natural Laxative] 8.6 mg PO DAILY PRN PRN Reason: Constipation Tramadol HCl [Tramadol Tab] 50 mg PO Q8H PRN PRN Reason: Pain clonazePAM TAB [KlonoPIN] 0.5 mg PO TID Aspirin/Caffeine [Bc Arthritis Powder Packet] 1 each PO DAILY PRN PRN Reason: Pain - Follow Up or Referral Follow Up: John Alexis MD [Physician] - 07/07/17 2:30 pm Ryan Herbert DO [Physician] - 2 Weeks - Forms/Instructions Instructions: Diabetes Mellitus Type 2 in Adults (DC) Additional Discharge Instructions: I only want the patient to be discharged on Pravachol. I want the Lipitor to be stopped. I have not been successful in removing it from his medication list. His insurance will not cover Lipitor so I have substituted Pravachol. Exam - Constitutional Vitals: Period Temp Pulse Resp BP Sys/June Pulse Ox Last 24 Hr 97.0 F-98.7 F 50-62 18-20 121-153/69-82 95-98 General appearance: no acute distress - Head Head exam: Present: normal inspection - Eye Pupils: Present: GLORY - ENT ENT exam: Present: normal exam - Neck Neck exam: Present: normal inspection - Respiratory Respiratory exam: Present: clear to auscultation bilaterally - Cardiovascular Cardiovascular exam: Present: regular rate and rhythm - GI/Abdominal GI/Abdominal exam: Present: normal bowel sounds, soft - Extremities Exam Extremities exam: Present: normal inspection - Back Exam Back exam: Present: normal inspection - Neurological Exam Neurological exam: Present: alert, oriented X3 - Psychiatric Psychiatric exam: Present: normal affect - Skin Skin exam: Present: normal color Discharge Results Labs on day of discharge: Labs from last 24 hours 06/05/17 06/05/17 06/05/17 11:47 08:03 04:19 WBC RBC Hgb Hct MCV MCH MCHC RDW Plt Count MPV Neut % (Auto) Lymph % (Auto) [place] % (Auto) Eos % (Auto) Baso % (Auto) Neut # (Auto) Lymph # (Auto) [place] # (Auto) Eos # (Auto) Baso # (Auto) Immature Gran % Nucleated RBC % Immature Gran # Nucleated RBCs # Sodium 142 Potassium 3.7 Chloride 107 Carbon Dioxide 25 Anion Gap 13.7 BUN 6 L Creatinine 0.70 GFR Calculation 136 BUN/Creatinine Ratio 8.00 Glucose 160 H POC Glucose 279 H 191 H Calculated Osmolality 283.1 Calcium 8.1 L Total Bilirubin 0.60 AST 46 H ALT 103 H Alkaline Phosphatase 56 Total Protein 5.5 L Albumin 3.3 L Globulin 2.2 L Albumin/Globulin Ratio 1.5 06/05/17 06/04/17 06/04/17 04:19 20:23 16:13 WBC 7.2 RBC 4.41 Hgb 13.4 L Hct 39.1 L MCV 88.7 MCH 30 MCHC 34.3 RDW 12.9 Plt Count 143 MPV 12.8 H Neut % (Auto) 50.2 Lymph % (Auto) 31.7 [place] % (Auto) 8.9 Eos % (Auto) 7.5 Baso % (Auto) 1.0 H Neut # (Auto) 3.6 Lymph # (Auto) 2.3 [place] # (Auto) 0.6 Eos # (Auto) 0.5 Baso # (Auto) 0.1 Immature Gran % 0.7 Nucleated RBC % 0.0 Immature Gran # 0.05 Nucleated RBCs # 0.00 Sodium Potassium Chloride Carbon Dioxide Anion Gap BUN Creatinine GFR Calculation BUN/Creatinine Ratio Glucose POC Glucose 209 H 188 H Calculated Osmolality Calcium Total Bilirubin AST ALT Alkaline Phosphatase Total Protein Albumin Globulin Albumin/Globulin Ratio DS: Provider Date of admission: 06/02/17 15:34 Primary care physician: . No PCP Attending physician on admission: Ryan Herbert DO Consults: 06/02/17 15:35 Consult to Case Mgmt/Social Srvs [CONS] Routine Reason for Case Mgmt/Social Srvs: Discharge Planning 06/02/17 15:37 Consult to Physician [CONS] Routine Comment: Consulting Provider: John Alexis When should Consulting Provider be notified: Now Person Notified: [email or web address] Date Notified: 06/03/17 Time Notified: 08:55 06/02/17 16:49 Consult to Dietitian [CONS] Routine Reason for Dietitian: Other 06/03/17 08:16 Consult to [facility], Educator [CONS] Routine Reason for Oem Sales Manager: Diabetes Education Consult Comment: General diabetic instruction for new diabetic Discharging clinician: Ryan Herbert DO
[2017-06-05] MEDS ORDERED: glyBURIDE 5 MG TABLET PO SCH (17:00)
[2017-06-05 17:21] VITALS: BP 121/69
[2017-06-06] MEDS ORDERED: PRAVASTATIN 40 MG TABLET PO SCH (09:00)
== END 2017-06-05 17:26 | disposition home or self-care (01) | DRG 395 ==
LOC: N.ED 13:14 → N.EDINP 13:14 → OBSVTOIN 15:34 → N.2E 16:35
PROVIDERS: ADMIT Family Medicine; ATTEND Family Medicine